=== PATIENT | male | born 1985 | race Asian ===

== ENCOUNTER 2018-03-04 23:05 | Emergency (ER) | payer SELFPAY ==
[~2018-03-04] VITALS: Ht 167.6 cm; Wt 104.5 kg
[2018-03-04] MEDS ORDERED: ACET-784 PO (23:33)
[2018-03-04] MEDS ORDERED: LORA10TA7 PO (23:33)
[2018-03-05] MEDS ORDERED: PredniSONE 20 MG TABLET PO ONE (04:15)
[2018-03-05] MEDS ORDERED: ALBUTEROL SULFATE HFA 90 MCG/PUFF 8 GM INHALER IH ONE (04:15)
[2018-03-05 04:48] VITALS: BP 135/81
== END 2018-03-05 05:06 | disposition home or self-care (01) ==
LOC: EMS 23:08
DX: J98.01 Acute bronchospasm (principal); J06.9 Acute upper respiratory infection, unspecified
CPT/HCPCS: 71045; 99283; J7512; J3535